=== PATIENT | female | born 1955 | race Caucasian/White ===

== ENCOUNTER → 2016-07-26 | Outpatient (CLI) | payer OTHER | LOC: GMAH 14:07 | PROVIDERS: ATTEND Family Medicine | DX: E06.3 Autoimmune thyroiditis (principal) ==

== ENCOUNTER → 2017-01-22 | Outpatient (CLI) | payer OTHER ==
--- NOTE | 2017-01-22 16:28 | MRI ---
EXAM DESCRIPTION: MRI cervical spine CLINICAL HISTORY: M54.12. Cervical spine pain. Radiculopathy COMPARISON: None Available. TECHNIQUE: Multi planar, multi sequence MRI evaluation of the cervical spine FINDINGS: Multilevel disc degeneration C3-4 through C7-T1 with mild smooth kyphosis and mild contouring of the ventral cord. No cord compression. Cervical and visualized thoracic spinal cord normal in caliber and signal No advanced arthrosis atlantooccipital or atlantoaxial C2-3: Minimal central bulge indenting the ventral thecal sac. Mild asymmetric left facet arthrosis. No foraminal stenosis C3-4: Disc desiccation without focal disc herniation, canal or foraminal narrowing C4-5: Moderate loss of disc height with mild protrusion left paracentral indenting the ventral cord. No foraminal stenosis. C5-6: Moderate loss of disc height with disc osteophyte ridging flattening the ventral thecal sac and ventral cord. Asymmetric right paracentral disc osteophyte ridge abuts the ventral nerve root right C6. Contiguous uncovertebral joint hypertrophy and mild bony foraminal encroachment. No left foraminal narrowing C6-7: Mild loss of disc height with left paracentral protrusion indenting the ventral cord. No canal stenosis or cord compression. Mild uncovertebral joint hypertrophy and mild foraminal narrowing right greater than left C7-T1: Moderate loss of disc height with ventral endplate osteophyte ridging. Shallow left paracentral protrusion indenting the ventral thecal sac. Uncovertebral arthrosis with foraminal stenosis right greater than left. Impingement of the right C8 nerve along the exit zone of the foramen from a right lateral disc herniation axial T2 image 3 of series 601 and sagittal T2 series 201 image 13 and 14. Disc herniation also seen on axial T1 series 701 image 3 No mass or adenopathy in the soft tissues of the neck IMPRESSION: C7-T1: Right lateral disc herniation with compression of right C8 nerve lateral to the exit zone of the foramen C5-6: Right paracentral disc osteophyte complex impinging right ventral C6 nerve root Multilevel disc degeneration with minimal contouring of the ventral cord Electronically signed by: Venkata Lovett MD 01/22/2017 4:26 PM CDT
== END | disposition home or self-care (01) ==
LOC: MRI 07:00
PROVIDERS: ATTEND Family Medicine
DX: M54.12 Radiculopathy, cervical region (principal)

== ENCOUNTER → 2017-08-08 | Outpatient (CLI) | payer OTHER | LOC: GMAH 10:32 | PROVIDERS: ATTEND Family Medicine | DX: E06.3 Autoimmune thyroiditis (principal) ==

== ENCOUNTER → 2017-11-20 | Outpatient (CLI) | payer OTHER | LOC: GMAH 14:18 | PROVIDERS: ATTEND Family Medicine | DX: N30.00 Acute cystitis without hematuria (principal) ==

== ENCOUNTER → 2018-02-07 | Outpatient (CLI) | payer OTHER | LOC: LAB.O 07:40 | PROVIDERS: ATTEND Family Medicine | DX: E78.2 Mixed hyperlipidemia (principal) ==

== ENCOUNTER → 2018-08-12 | Outpatient (CLI) | payer OTHER | LOC: GMAH 10:28 | PROVIDERS: ATTEND Family Medicine | DX: E89.0 Postprocedural hypothyroidism (principal); E78.2 Mixed hyperlipidemia ==

== ENCOUNTER → 2019-01-16 | Outpatient (CLI) | payer OTHER | LOC: GMA MATASK 13:17 | PROVIDERS: ATTEND Family Medicine | DX: E78.2 Mixed hyperlipidemia (principal) ==

== ENCOUNTER → 2019-05-27 | Outpatient (CLI) | payer OTHER | LOC: GMAM 17:00 | PROVIDERS: ATTEND Family Medicine | DX: E03.9 Hypothyroidism, unspecified (principal); E78.2 Mixed hyperlipidemia ==

== ENCOUNTER → 2019-09-23 | Outpatient (CLI) | payer OTHER | LOC: GMA MATASK 10:48 | PROVIDERS: ATTEND Family Medicine | DX: Z00.00 Encounter for general adult medical examination without abnormal findings (principal) ==

== ENCOUNTER → 2019-10-12 | Outpatient (CLI) | payer OTHER ==
--- NOTE | 2019-10-14 16:44 | MAM ---
EXAM DESCRIPTION: 3D Screening BILATERAL : Digital Mammography. CLINICAL HISTORY: 64 years Female SCREENING . No complaints. No personal or family history of breast cancer. Menarche age 17. Childbirth age 20. Menopause age 57. HRT 5 or more years ago. Lifetime risk of developing breast cancer (Tyrer-Cuzick model)(%): 4.6. COMPARISON: Baseline study at this facility.. No prior reports available. TECHNIQUE: Bilateral CC and MLO projection full-field images, digital tomosynthesis mammographic technique. Bilateral digital 2-D full-field MLO images. CAD available for 2-D images. FINDINGS: The breast parenchymal density pattern is: Heterogeneously dense breast tissue, which may obscure small masses. No skin thickening or nipple retraction. Skin mole marker left breast. Coarse calcification right breast. Groups of benign type microcalcifications central right breast. No focal, stellate mass or density, focal asymmetry , and no suspicious microcalcifications . IMPRESSION: Benign exam. BIRAD CATEGORY: 2 BENIGN FINDINGS. RECOMMENDATIONS: FOLLOW UP: Routine digital bilateral mammographic screening, one year interval from September 2019. Written communication explaining the IMPRESSION and follow-up, will be mailed to the patient and referring health care provider. According to the [employer], yearly mammograms are recommended starting at age 40 and continuing as long as a woman is in good health. Any breast change noted on a breast self-exam should be reported promptly to the patient's healthcare provider. Breast MRI is recommended for women with an approximately 20-25% or greater lifetime risk of breast cancer, including women with a strong family history of breast or ovarian cancer and women who have been treated for Hodgkin's disease. A negative mammographic report should not delay tissue diagnosis in patients with significant clinical history or physical findings. Extremely dense breast tissue limits the sensitivity of digital mammography. Electronically signed by: Emmanuel Garcia MD 10/14/2019 4:43 PM CDT
== END ==
LOC: MAMMO 16:00
PROVIDERS: ATTEND Family Medicine
DX: Z12.31 Encounter for screening mammogram for malignant neoplasm of breast (principal)